=== PATIENT | female | born 1960 | race Caucasian/White ===

== ENCOUNTER → 2018-02-01 15:21 | Outpatient (CLI) | payer OTHER, SELFPAY ==
--- NOTE | 2018-02-01 | DI.MG.S_ITS ---
BILATERAL DIGITAL SCREENING MAMMOGRAM 3D/2D WITH CAD: 02/01/2018 CLINICAL: Routine screening. Family history of breast cancer. Comparison is made to exams dated: 01/26/2014 mammogram, 01/15/2014 mammogram, and 07/30/2007 mammogram - [facility]. There are scattered fibroglandular elements in both breasts. Current study was also evaluated with a Computer Aided Detection (CAD) system. No significant masses, calcifications, or other findings are seen in either breast. There has been no significant interval change. IMPRESSION: NEGATIVE There is no mammographic evidence of malignancy. A 1 year screening mammogram is recommended. This exam was interpreted at Station ID: [id number]. NOTE: For mammograms, a report in lay terms will be sent to the patient. Approximately 15% of breast malignancies will not be visualized mammographically. In the management of a palpable breast mass, a negative mammogram must not discourage biopsy of a clinically suspicious lesion. Electronically Signed By: Lili ge/gael:02/01/2018 16:54:43 letter sent: Normal Exam ACR BI-RADS Category 1: Negative 3341F
== END ==
PROVIDERS: Family Provider Family Medicine; PCP Family Medicine; Visit Provider Family Medicine
DX: Z12.31 Encounter for screening mammogram for malignant neoplasm of breast (principal); Z80.3 Family history of malignant neoplasm of breast
CPT/HCPCS: 77063; 77067

== ENCOUNTER → 2018-03-11 07:57 | Outpatient (CLI) | payer OTHER, SELFPAY ==
[2018-03-11 08:35] LABS: Add Manual Diff / Slide Review NO; Basophils Percent Auto 0.7 % (0-2); Eosinophils Percent Auto 2.9 % (2-4); Hematocrit 42.1 % (36-46); Lymphocytes Percent Auto 34.3 % (25-40); Mean Corpuscular HGB Conc 33.4 % (30-36); Mean Corpuscular Hemoglobin 31.6 PG (26-34); Mean Corpuscular Volume 94.6 fL (80-100); Monocytes Percent Auto 6.8 % (3-14); Neutrophils Absolute Auto 4800 /uL (3000-5900); Neutrophils Percent Auto 55.3 % (50-75); Platelet Count 281 X10^3/uL (150-400); Red Blood Cell Count 4.44 X10^6/uL (4.0-5.2); Red Cell Distribution Width 12.5 % (11.6-14.8); White Blood Cell Count 8.7 X10^3/uL (4.5-11.0)
[2018-03-11 08:44] LABS: Alanine Aminotransferase 28 IU/L (9-52); Albumin 3.8 g/dL (3.5-5.0); Albumin Globulin Ratio 1.3 (1.0-2.8); Alkaline Phosphatase 89 U/L (38-126); Aspartate Aminotransferase 34 IU/L (14-36); BUN Creatinine Ratio 12.5 (6-22); Bilirubin Total 0.4 mg/dL (0.2-1.3); Blood Urea Nitrogen 10 mg/dL (7-17); Calcium 8.5 mg/dL (8.4-10.2); Carbon Dioxide 27 mmol/L (22-32); Chloride 106 mmol/L (98-107); Cholesterol 242 mg/dL (140-199); Estimated Glomerular Filt Rate > 60.0 mL/min (>60); Glucose 92 mg/dL (70-100); HDL Cholesterol 74 mg/dL (40-60); HEMOLYSIS < 15 (0-50); LDL Cholesterol Calculated 132 mg/dL (<100); Potassium 3.9 mmol/L (3.4-5.1); Sodium 142 mmol/L (137-145); Total Protein 6.8 g/dL (6.3-8.2); Triglycerides 181 mg/dL (35-150)
== END ==
PROVIDERS: PCP Family Medicine; Visit Provider Family Medicine
DX: Z00.00 Encounter for general adult medical examination without abnormal findings (principal)
CPT/HCPCS: 36415; 80053; 80061; 85025

== ENCOUNTER → 2018-12-14 13:22 | Outpatient (CLI) | payer OTHER, SELFPAY ==
--- NOTE | 2018-12-14 | DI.RAD.S_ITS ---
PROCEDURE: XR SHOULDER LT MIN 2V INDICATIONS: left shoulder pain TECHNIQUE: 3 views of the shoulder were acquired. COMPARISON: [facility], , SHOULDER MINIMUM 2 VIEW LEFT, 04/06/2017, 11:25. FINDINGS: Bones: No fractures or dislocations. No suspicious bony lesions. Visualized ribs appear intact. There are mild degenerative changes of the left acromioclavicular joint. Soft tissues: No suspicious soft tissue calcifications. IMPRESSION: Mild degenerative changes of the left acromioclavicular joint. Dictated by: Deonte Becerril M.D. on 12/14/2018 at 15:15 Approved by: Deonte Becerril M.D. on 12/14/2018 at 15:20
== END ==
PROVIDERS: PCP Family Medicine; Visit Provider Family Medicine
DX: M25.512 Pain in left shoulder (principal); M17.12 Unilateral primary osteoarthritis, left knee
CPT/HCPCS: 73030

== ENCOUNTER → 2019-01-04 08:16 | Outpatient (CLI) | payer OTHER, SELFPAY ==
--- NOTE | 2019-01-04 | DI.MRI.S_ITS ---
PROCEDURE: MR SHOULDER LT WO CON INDICATIONS: Disorder of synovium and tendon LEFT SHOULDER TECHNIQUE: Noncontrast oblique coronal T2 fast spin echo with fat saturation, oblique sagittal T1 spin echo and T2 fast spin echo with fat saturation, axial T1 spin echo and T2 fast spin echo with fat saturation through the shoulder. COMPARISON: [facility], CR, XR SHOULDER LT MIN 2V, 12/14/2018, 13:32. FINDINGS: Image quality: Excellent. Rotator cuff: Low-grade articular surface fraying of the infraspinatus tendon however no discrete tear is identified. The supraspinatus, teres minor and subscapularis tendons appear intact. No atrophy of the rotator cuff musculature. Bones and bursae: No bone marrow contusions or fractures. Prominent acromioclavicular joint marrow and periarticular soft tissue edema. Possible trace AC joint effusion. The acromion demonstrates conventional anatomy, without an os acromiale. No pathologic subacromial-subdeltoid or subcoracoid bursal fluid is present. Capsule and soft tissues: In the absence of intra-articular contrast, the labrum and glenohumeral ligaments appear intact. Incidental sub-labral foramen. The long head of the biceps tendon demonstrates normal location and morphology. The rotator interval appears normal, without fibrosis. The coracohumeral ligament is normal in thickness. IMPRESSION: Low-grade articular surface fraying of the infraspinatus tendon however no discrete rotator cuff tear. Prominent acromioclavicular joint marrow and periarticular soft tissue edema. This could reflect osteoarthritis although other posttraumatic, infectious or inflammatory arthropathies in the differential. Please correlate clinically. Dictated by: Juan Cooper M.D. on 01/04/2019 at 9:08 Approved by: Juan Cooper M.D. on 01/04/2019 at 9:15
== END ==
PROVIDERS: PCP Family Medicine; Visit Provider Orthopaedic Surgery
DX: M67.912 Unspecified disorder of synovium and tendon, left shoulder (principal); M25.412 Effusion, left shoulder
CPT/HCPCS: 73221

== ENCOUNTER → 2019-03-02 09:40 | Outpatient (CLI) | payer OTHER, SELFPAY ==
--- NOTE | 2019-03-02 | DI.MG.S_ITS ---
BILATERAL DIGITAL SCREENING MAMMOGRAM 3D/2D WITH CAD: 03/02/2019 CLINICAL: Routine screening. Family history of breast cancer. Comparison is made to exams dated: 02/01/2018 mammogram, 01/15/2014 mammogram, and 07/30/2007 mammogram - [facility]. There are scattered fibroglandular elements in both breasts. Current study was also evaluated with a Computer Aided Detection (CAD) system. No significant masses, calcifications, or other findings are seen in either breast. There has been no significant interval change. IMPRESSION: NEGATIVE There is no mammographic evidence of malignancy. A 1 year screening mammogram is recommended. This exam was interpreted at Station ID: [id number]. NOTE: For mammograms, a report in lay terms will be sent to the patient. Approximately 15% of breast malignancies will not be visualized mammographically. In the management of a palpable breast mass, a negative mammogram must not discourage biopsy of a clinically suspicious lesion. Electronically Signed By: Lili ge/gael:03/02/2019 10:40:39 letter sent: Normal Exam ACR BI-RADS Category 1: Negative 3341F
== END ==
PROVIDERS: PCP Family Medicine; Visit Provider Family Medicine
DX: Z12.31 Encounter for screening mammogram for malignant neoplasm of breast (principal); Z80.3 Family history of malignant neoplasm of breast
CPT/HCPCS: 77063; 77067

== ENCOUNTER 2019-04-07 09:41 | Day surgery (SDC) | payer OTHER, SELFPAY ==
[2019-04-07] VITALS (8 sets, daily range): BP systolic 92–107; BP diastolic 62–72; PULSE 54–81; RESP 10–16; TEMP 36.2–36.6; O2SAT 94–99; BMI 26.6
--- NOTE | 2019-04-07 | PATH_ITS ---
[facility] Accession Number: [id number] . 01 Material submitted: . rectum - POLYP RECTUM NEAR ANUS . 02 Diagnosis: Rectum, Near Anus, Polyp: Hyperplastic polyp. [facility]/04/10/2019 . 02 Electronically signed: . Terrance Ramirez MD, PhD, Pathologist NPI- [id number] . 01 Gross description: . POLYP RECTUM NEAR ANUS: Received in formalin is 1 fragment(s) of rudolph, soft tissue measuring 0.2 x 0.2 x 0.2 cm which is entirely submitted and submitted entirely in 1 cassette(s) /DMC /DMC . 02 Pathologist provided ICD-10: K62.1 . 02 CPT . 895044 Performed at: 01 [facility] Located within [facility] [address] [id number] MD Lv Whitney MD Phone: [phone] Performed at: 02 [facility] [place] [address] [place], [place] [id number] MD Nanci Hill MD Phone: [phone]
[2019-04-07] MEDS: SODIUM CHLORIDE 0.9% 1,000 ML 200 ML IV (10:13)
--- NOTE | 2019-04-07 11:25 | P.HP_ITS ---
History of Present Illness Date Patient Seen: 04/07/19 Time Patient Seen: 11:24 Chief complaint: 59530 SCREENING COLONOSCOPY Narrative: The patient is here for screening colonoscopy. Last exam was 5 years ago. She had a polyp removed at that time. Patient History Medical History Arthritis (Acute) Bursitis of left shoulder (Acute) Impaired vision (Acute) Dermoid cyst (Chronic) Fibroids (Chronic) Vaginal delivery (Resolved) Surgical History H/O total hysterectomy with bilateral salpingo-oophorectomy (BSO) (Resolved ~01/10/15) History of bilateral tubal ligation (Resolved ~1989) History of sinus surgery (Resolved 1986) Status post tonsillectomy and adenoidectomy (Resolved) Family History Father Diabetes mellitus Mother Aneurysm Epilepsy Social History household members: spouse Smoking Status: Former smoker Family & Social History Family History Father Diabetes mellitus Mother Aneurysm Epilepsy Social History: household members spouse Tobacco & Substance use: Smoking Status Former smoker Meds Home Medications Medication Instructions Recorded Confirmed Type loratadine [Claritin] 10 mg PO QDAY #0 07/11/12 03/22/18 History estradiol 1 mg tablet 1 mg PO QDAY #90 tab 03/22/18 Rx Allergies Allergy/AdvReac Type Severity Reaction Status Date / Time prochlorperazine Allergy Severe JAW Unverified 12/22/17 13:03 PAIN/SWELLING dog dander Allergy Intermediate Verified 03/22/18 09:03 amoxicillin Allergy Mild HIVES Unverified 12/22/17 13:03 Sulfa (Sulfonamide Allergy Mild STOMACH Unverified 12/22/17 13:03 Antibiotics) UPSET/HEADACHES Review of Systems Review of Systems All systems reviewed & are unremarkable except as noted in HPI and below Musculoskeletal Comments: Shoulder arthritis Exam Vital Signs (past 8 hours): - 04/07/19 10:13 Temperature 97.5 F L Pulse Rate 81 Respiratory Rate 15 Blood Pressure 107/72 Pulse Oximetry 94 Oxygen Delivery Method Room Air Narrative Exam Narrative: Pleasant cooperative patient no apparent distress. Lungs are clear to auscultation. No rales or rhonchi. Heart regular rate and rhythm no murmur gallop. Abdomen is soft nontender without mass. No obvious hernias. Patient is alert and oriented x3. Assessment & Plan Assessment & Plan narrative: The patient for a screening colonoscopy. I have discussed the procedure with them. Risks of bleeding, perforation which would n ecessitate major operation, failure to find remove all lesions, the potential tattoo were all discussed. All questions were answered. They wished to proceed.
--- NOTE | 2019-04-07 11:25 | PM.PREOP ---
Pre-operative Note Interval Note History & Physical reviewed/Exam performed by Physician: Yes Changes to H&P: No ASA Class (for procedural sedation): I
[2019-04-07] MEDS: SCOPOLAMINE 1 PATCH TOP (11:30)
[2019-04-07] MEDS: ONDANSETRON 4 MG/2 ML INJ IV (11:37)
[2019-04-07] MEDS: MIDAZOLAM 5 MG/5 ML VIAL IV (11:45)
[2019-04-07] MEDS: fentaNYL 250 MCG/5 ML INJ IV (11:45)
--- NOTE | 2019-04-07 12:02 | P.OP.ENDO_ITS ---
Operative Date/Time/Diagnoses Date of procedure: 04/07/19 Time of procedure: 11:58 Pre-op diagnosis: Screening exam. Last exam 5 years ago. History of polyps Post-op diagnosis: same (The single Ano- rectal polyp) Procedure & Clinicians Study performed: Colonoscopy with cold biopsy Same procedure as scheduled: Yes Indications: Screening Surgeon: Ryan Sotomayor Procedure Notes SCOAP/Timeout: Performed Procedure in detail: The patient was placed in the left lateral decubitus position and underwent IV sedation directed by the surgeon consisting of fentanyl and Versed. Digital exam was unremarkable. The scope was inserted and advanced through the rectum into the sigmoid, descending, transverse, and ascending colon. No significant lesions were seen.. The cecum was reached identified by the ileocecal valve and the appendiceal opening. The ileocecal valve was successfully cannulated. The terminal ileum was normal in appearance. The scope was gradually brought out. One Polyp was found at just inside the an us. The scope ultimately was retroflexed in the rectum. The appearance was normal except for the tiny polyp I saw. This was removed with cold biopsy forceps. The scope was removed and the patient tolerated the procedure well. Prep was very good. Scope withdrawal time: 7-1/2 minutes Sedation minutes: 20 Findings: polyp (Just inside the anus) Specimen(s): other (Polyp) Complications: none Recommendations: Colonscopy in 5 years (Due to history of polyps)
--- NOTE | 2019-04-07 12:33 | SUR.PHASEI ---
1200 To PACU, Very sleeping, arouses to voice, skin warm and dry, resp unlabored 1230 Turned to back, responds to voice, VSS. Very sleepy. Stable.
== END 2019-04-07 13:17 | disposition home or self-care (01) ==
LOC: ENDO 09:43
PROVIDERS: PCP Student in an Organized Health Care Education/Training Program; Visit Provider Specialist
PROC: 0DJD8ZZ Inspection of Lower Intestinal Tract, Via Natural or Artificial Opening Endoscopic (ICD-10-PCS; CPT 45378; principal; 2019-04-07 10:45)
DX: Z86.010 Personal history of colon polyps (principal); K62.1 Rectal polyp
CPT/HCPCS: 45380; 99152; J2250; J2405; J3010

== ENCOUNTER → 2019-10-20 09:23 | Outpatient (CLI) | payer OTHER, SELFPAY ==
--- NOTE | 2019-10-20 | DI.RAD.S_ITS ---
PROCEDURE: XR KNEE RT 3V INDICATIONS: RIGHT KNEE PAIN TECHNIQUE: 3 views of the knee were acquired. COMPARISON: None. FINDINGS: Bones: No fractures or dislocations. No suspicious bony lesions. Scattered degenerative subchondral sclerosis and spurring. No definite joint space narrowing Soft tissues: No joint effusion. No suspicious soft tissue calcifications. IMPRESSION: Mild degenerative changes as above Dictated by: Juan Cooper M.D. on 10/20/2019 at 11:08 Approved by: Juan Cooper M.D. on 10/20/2019 at 11:09
--- NOTE | 2019-10-20 | DI.RAD.S_ITS ---
PROCEDURE: XR FOOT RT MIN 3V INDICATIONS: RIGHT FOOT PAIN TECHNIQUE: 3 views of the foot were acquired. COMPARISON: None. FINDINGS: Bones: No fractures or dislocations. No suspicious bony lesions. Posterior and plantar calcaneal spur. First MTP degeneration, with prominent dorsal spur seen on the lateral view. Slight flattening deformity of the second metatarsal head raising possibility of Freiberg's infraction. Diffuse interphalangeal degenerative changes. Focal lucency projecting in the fifth metatarsal head which could represent cyst or erosion, technically age-indeterminate. Soft tissues: No tibiotalar joint effusion. Achilles tendon appears normal. IMPRESSION: Diffuse right foot joint degenerative changes as above Dictated by: Juan Cooper M.D. on 10/20/2019 at 11:01 Approved by: Juan Cooper M.D. on 10/20/2019 at 11:08
== END ==
PROVIDERS: PCP Student in an Organized Health Care Education/Training Program; Referring Provider Student in an Organized Health Care Education/Training Program; Visit Provider Student in an Organized Health Care Education/Training Program
DX: M25.561 Pain in right knee (principal); M79.671 Pain in right foot
CPT/HCPCS: 73562; 73630

== ENCOUNTER → 2020-03-13 12:43 | Outpatient (CLI) | payer OTHER, SELFPAY ==
--- NOTE | 2020-03-13 | DI.MG.S_ITS ---
BILATERAL DIGITAL SCREENING MAMMOGRAM 3D/2D WITH CAD: 03/13/2020 CLINICAL: Routine screening. Family history of breast cancer. Comparison is made to exams dated: 03/02/2019 mammogram, 02/01/2018 mammogram, and 01/26/2014 mammogram - [facility]. There are scattered fibroglandular elements in both breasts. Current study was also evaluated with a Computer Aided Detection (CAD) system. No significant masses, calcifications, or other findings are seen in either breast. There has been no significant interval change. IMPRESSION: NEGATIVE There is no mammographic evidence of malignancy. A 1 year screening mammogram is recommended. This exam was interpreted at Station ID: [id number]. NOTE: For mammograms, a report in lay terms will be sent to the patient. Approximately 15% of breast malignancies will not be visualized mammographically. In the management of a palpable breast mass, a negative mammogram must not discourage biopsy of a clinically suspicious lesion. Electronically Signed By: Omega guido/gael:03/13/2020 13:44:46 letter sent: Normal Exam ACR BI-RADS Category 1: Negative 3341F
== END ==
PROVIDERS: PCP Student in an Organized Health Care Education/Training Program; Referring Provider Student in an Organized Health Care Education/Training Program; Visit Provider Student in an Organized Health Care Education/Training Program
DX: Z12.31 Encounter for screening mammogram for malignant neoplasm of breast (principal); Z80.3 Family history of malignant neoplasm of breast
CPT/HCPCS: 77063; 77067

== ENCOUNTER → 2021-03-14 10:37 | Outpatient (CLI) | payer OTHER, SELFPAY ==
--- NOTE | 2021-03-14 | DI.MG.S_ITS ---
BILATERAL DIGITAL SCREENING MAMMOGRAM 3D/2D WITH CAD: 03/14/2021 CLINICAL: Routine screening. Family history of breast cancer. Comparison is made to exams dated: 03/13/2020 mammogram, 03/02/2019 mammogram, and 02/01/2018 mammogram - [facility]. There are scattered fibroglandular elements in both breasts. Current study was also evaluated with a Computer Aided Detection (CAD) system. No significant masses, calcifications, or other findings are seen in either breast. There has been no significant interval change. IMPRESSION: NEGATIVE There is no mammographic evidence of malignancy. A 1 year screening mammogram is recommended. This exam was interpreted at Station ID: [id number]. NOTE: For mammograms, a report in lay terms will be sent to the patient. Approximately 15% of breast malignancies will not be visualized mammographically. In the management of a palpable breast mass, a negative mammogram must not discourage biopsy of a clinically suspicious lesion. Electronically Signed By: Lv hernandez/gael:03/14/2021 11:47:13 letter sent: Normal Exam ACR BI-RADS Category 1: Negative 3341F
== END ==
PROVIDERS: PCP Student in an Organized Health Care Education/Training Program; Referring Provider Student in an Organized Health Care Education/Training Program; Visit Provider Student in an Organized Health Care Education/Training Program
DX: Z12.31 Encounter for screening mammogram for malignant neoplasm of breast (principal); Z80.3 Family history of malignant neoplasm of breast
CPT/HCPCS: 77063; 77067

== ENCOUNTER 2021-04-20 15:10 | Emergency (ER) | payer OTHER, SELFPAY ==
[2021-04-20 15:13] VITALS: BP 126/58; PULSE 79; RESP 16; TEMP 36.7; O2SAT 97
--- NOTE | 2021-04-20 15:15 | DI.RAD.S_ITS ---
PROCEDURE: XR ANKLE RT MIN 3V INDICATIONS: rolled rt ankle lateral pain, ambulatory TECHNIQUE: 3 views of the ankle were acquired. COMPARISON: [facility], CR, XR FOOT RT MIN 3V, 10/20/2019, 9:28. FINDINGS: Bones: No fractures or dislocations. Ankle mortise is normally aligned. No suspicious bony lesions. The talar dome demonstrates no jerrod abnormality. Incidental note is made of an accessory ossicle, an os trigonum. Age-appropriate bony degenerative changes are seen. A plantar calcaneal spur is seen. Soft tissues: No tibiotalar joint effusion. Achilles tendon appears normal. IMPRESSION: Degenerative changes, without an acute bony abnormality identified. If it would be helpful for clinical management decision making, please consider a dedicated, scheduled ankle MRI for further evaluation (assuming that there is no contraindication). Dictated by: Willi Duffy M.D. on 04/20/2021 at 14:32 Approved by: Willi Duffy M.D. on 04/20/2021 at 14:32
[2021-04-20 17:00] VITALS: BP 102/61; PULSE 73; RESP 18; O2SAT 99
--- NOTE | 2021-04-20 19:03 | ED_ITS ---
HPI - Extremity Injury (Lower) General Chief Complaint: Extremity Injury, Lower Stated Complaint: ROLLED RIGHT ANKLE Time Seen by Provider: 04/20/21 19:03 Source: patient Mode of arrival: Ambulatory Limitations: no limitations History of Present Illness HPI Narrative: This is a 61-year-old female [place] she rolled her right ankle inverting it. Patient developed swelling and some pain over the lateral malleoli. Patient has not any numbness or tingling or weakness. She has pain with weight-bearing. She has pain if she tries to gerson her ankle or inverted. She denies any injury elsewhere. She did have a severe ankle sprain at the age of 20 but has not had any other injuries. She did not take anything at home but did ice it for about an hour I which was somewhat helpful. Patient denies any other major medical issues. No prior surgeries to that ankle. She denies any other injuries today. She states that she does have crutches at home. Related Data Home Medications Medication Instructions Recorded Confirmed loratadine 10 mg tablet (Claritin) 10 mg PO QDAY #0 07/11/12 03/22/18 Previous Rx's Medication Instructions Recorded estradiol 1 mg tablet 1 mg PO QDAY #90 tab 03/22/18 Allergies Allergy/AdvReac Type Severity Reaction Status Date / Time prochlorperazine Allergy Severe JAW Unverified 12/22/17 13:03 PAIN/SWELLING dog dander Allergy Intermediate Verified 03/22/18 09:03 amoxicillin Allergy Mild HIVES Unverified 12/22/17 13:03 Sulfa (Sulfonamide Allergy Mild STOMACH Unverified 12/22/17 13:03 Antibiotics) UPSET/HEADACHES Review of Systems Review of Systems ROS Unobtainable: All systems reviewed & are unremarkable except as noted in HPI and below Patient History Medical History Arthritis Bursitis of left shoulder Dermoid cyst Fibroids Impaired vision Vaginal delivery Surgical History H/O total hysterectomy with bilateral salpingo-oophorectomy (BSO) (~01/10/15) History of bilateral tubal ligation (~1989) History of sinus surgery (1986) Status post tonsillectomy and adenoidectomy Family History Father Diabetes mellitus Mother Aneurysm Epilepsy Social History household members: spouse Smoking Status: Former smoker Smoking Status: Former smoker Exam Narrative Exam Narrative: GENERAL: Alert and oriented x three, female mild distress. HEENT: Head normocephalic, atraumatic, EOMI, pupils reactive, face symmetric, moist mucous membranes NECK: Supple, full range of motion CARDIOVASCULAR: Regular rate and rhythm without murmurs, rubs or gallops. RESPIRATORY: Breath sounds equal bilaterally, no wheezes rales or rhonchi. EXTREMITIES: Normal range of motion, no clubbing patient has tenderness and swelling as well ecchymosis over the lateral malleoli and just underneath. Shraddha ent's negative joint laxity testing. She has not any other bony tenderness of her light lower extremity. She has normal sensation with 2+ dorsalis pedis pulse. Neurovascularly intact NEUROLOGICAL: Cranial nerves II through XII grossly intact. Moving all extremities SKIN: Warm, dry, no petechiae, no rashes or lesions. Initial Vital Signs Initial Vital Signs: Vital Signs Temperature 98.1 F 04/20/21 15:13 Pulse Rate 79 04/20/21 15:13 Respiratory Rate 16 04/20/21 15:13 Blood Pressure 126/58 L 04/20/21 15:13 Pulse Oximetry 97 04/20/21 15:13 Course Orders Ordered: Discontinued Medications Ibuprofen (Ibuprofen 400 Mg Tablet) 800 mg PO NOW ONE Stop: 04/20/21 19:13 Last Admin: 04/20/21 19:25 Dose: 800 mg Documented by: AUPDIKE Vital Signs Vital signs: Vital Signs - 8 hr 04/20/21 15:13 04/20/21 17:00 Temperature 98.1 F Pulse Rate 79 73 Respiratory Rate 16 18 Blood Pressure 126/58 L 102/61 Pulse Oximetry 97 99 MDM - Extremity Injury (Lower) Imaging Data Extremity x-ray #1: Radiologist's Impression: [address] [id number] ReportSigned Patient: Toya Perez MMR#: [id number]: [id number]:[id number]/Sex: 61 / FDate of Service: 04/20/21Loc: EDAccession Number: [id number] Procedure: XR ankle RT min 3V Ordering Provider: Adela Pereira D.O. PROCEDURE: XR ANKLE RT MIN 3V INDICATIONS: rolled rt ankle lateral pain, ambulatory TECHNIQUE: 3 views of the ankle were acquired. COMPARISON: [facility], CR, XR FOOT RT MIN 3V, 10/20/2019, 9:28. FINDINGS: Bones: No fractures or dislocations. Ankle mortise is normally aligned. No suspicious bony lesions. The talar dome demonstrates no jerrod abnormality. Incidental note is made of an accessory ossicle, an os trigonum. Age-appropriate bony degenerative changes are seen. A plantar calcaneal spur is seen. Soft tissues: No tibiotalar joint effusion. Achilles tendon appears normal. IMPRESSION: Degenerative changes, without an acute bony abnormality identified. If it would be helpful for clinical management decision making, please consider a dedicated, scheduled ankle MRI for further evaluation (assuming that there is no contraindication). Dictated by: Willi Duffy M.D. on 04/20/2021 at 14:32 Approved by: Willi Duffy M.D. on 04/20/2021 at 14:32 Discharge Plan Departure Patient Disposition: Home Clinical Impression: Right ankle sprain Instructions: DI for Ankle Sprain Activity Restrictions/Additional Instructions: Follow-up with your physician if you are not having improvement the next 7-10 days. Call for an appointment. If you are not having improvement you may need repeat x-rays to evaluate for any occult fracture that sometimes is noted when bone regrowth weekends. You may take ibuprofen up to 800 mg every 8 hours and/or Tylenol up to a 1000 mg every 8 hours as needed for pain. You may weight bear as tolerated. Elevated affected body part to decrease swelling. OK to use ice pack on the affected body part. Use for 15-20 minutes each time, for 5-6x per day. If you develop worsening pain, numbness, tingling, discoloration of the affected body part, loosen or readjust the splint and either see your doctor for an urgent re-assessment, or return to the Emergency Department. Return to the Emergency Department for any new or worsening symptoms. Prescriptions: No Action loratadine [Claritin] 10 MG tablet 10 mg PO QDAY Qty: 0 RF: 0 estradiol 1 mg tablet 1 mg PO QDAY Qty: 90 RF: 3 Referrals: Denisse Bhakta MD [Primary Care Provider] -
[2021-04-20] MEDS: IBUPROFEN 400 MG TABLET 800 MG PO (19:25)
[2021-04-20 19:34] VITALS: PULSE 79; RESP 16; O2SAT 98
== END 2021-04-20 19:35 | disposition home or self-care (01) ==
PROVIDERS: Emergency Provider Emergency Medicine; PCP Student in an Organized Health Care Education/Training Program
DX: S93.401A Sprain of unspecified ligament of right ankle, initial encounter (principal); X50.1XXA Overexertion from prolonged static or awkward postures, initial encounter
CPT/HCPCS: 73610; 99283

== ENCOUNTER → 2022-03-17 11:39 | Outpatient (CLI) | payer OTHER, SELFPAY ==
--- NOTE | 2022-03-17 | DI.MG.S_ITS ---
BILATERAL DIGITAL SCREENING MAMMOGRAM 3D/2D WITH CAD: 03/17/2022 CLINICAL: Routine screening. Family history of breast cancer. Comparison is made to exams dated: 03/14/2021 mammogram, 03/13/2020 mammogram, 03/02/2019 mammogram, 02/01/2018 mammogram, and 01/15/2014 mammogram - [facility]. There are scattered fibroglandular elements in both breasts. Current study was also evaluated with a Computer Aided Detection (CAD) system. No significant masses, calcifications, or other findings are seen in either breast. There has been no significant interval change. IMPRESSION: NEGATIVE There is no mammographic evidence of malignancy. A 1 year screening mammogram is recommended. Based on the Tyrer Cuzick model (a risk assessment model) the patient's lifetime risk is 12.3% and her 10 year risk is 4.8%. According to the ACR, ACS, and NCCN guidelines, an annual breast MRI exam along with mammogram is recommended if the patient's lifetime risk is 20% or greater. This exam was interpreted at Station ID: [id number]. NOTE: For mammograms, a report in lay terms will be sent to the patient. Approximately 15% of breast malignancies will not be visualized mammographically. In the management of a palpable breast mass, a negative mammogram must not discourage biopsy of a clinically suspicious lesion. Electronically Signed By: Jonathan arriaga/gael:03/17/2022 12:59:19 letter sent: Normal Exam ACR BI-RADS Category 1: Negative 3341F
== END ==
PROVIDERS: PCP Family Medicine; Referring Provider Family Medicine; Visit Provider Family Medicine
DX: Z12.31 Encounter for screening mammogram for malignant neoplasm of breast (principal); Z80.3 Family history of malignant neoplasm of breast
CPT/HCPCS: 77063; 77067

== ENCOUNTER → 2022-09-03 13:56 | Outpatient (CLI) | payer OTHER, SELFPAY ==
--- NOTE | 2022-09-03 14:02 | DI.RAD.S_ITS ---
PROCEDURE: XR TOE LT MIN 2V INDICATIONS: ROUTINE TECHNIQUE: 3 views of the 5th toe(s) acquired. COMPARISON: None. FINDINGS: Bones: Minimally displaced intra-articular fracture involving the base of the 5th proximal phalanx. Soft tissues: No suspicious soft tissue densities. IMPRESSION: Intra-articular fracture involving the base of the 5th proximal phalanx. Dictated by: Tal LIRIANO Interpreted: Jonathan Swanson MD on 09/03/2022 at 14:35 Transcribed by: SARAH on 09/03/2022 at 14:36 Approved by: Jonathan Swanson M.D. on 09/03/2022 at 14:42
== END ==
PROVIDERS: PCP Family Medicine; Referring Provider Family Medicine; Visit Provider Family Medicine
DX: S92.512A Displaced fracture of proximal phalanx of left lesser toe(s), initial encounter for closed fracture (principal); M79.675 Pain in left toe(s)
CPT/HCPCS: 73660

== ENCOUNTER → 2023-03-18 15:30 | Outpatient (CLI) | payer OTHER, SELFPAY ==
--- NOTE | 2023-03-18 | DI.MG.S_ITS ---
BILATERAL DIGITAL SCREENING MAMMOGRAM 3D/2D WITH CAD: 03/18/2023 CLINICAL: Routine screening. Family history of breast cancer. Comparison is made to exams dated: 03/17/2022 mammogram, 03/13/2020 mammogram, and 03/14/2021 mammogram - [facility]. There are scattered areas of fibroglandular density in both breasts (category b / 25%-50% glandular tissue). Current study was also evaluated with a Computer Aided Detection (CAD) system. No significant masses, calcifications, or other findings are seen in either breast. There has been no significant interval change. IMPRESSION: NEGATIVE There is no mammographic evidence of malignancy. A 1 year screening mammogram is recommended. Based on the Tyrer Cuzick model (a risk assessment model) the patient's lifetime risk is 12.0% and her 10 year risk is 4.9%. According to the ACR, ACS, and NCCN guidelines, an annual breast MRI exam along with mammogram is recommended if the patient's lifetime risk is 20% or greater. This exam was interpreted at Station ID: [id number]. NOTE: For mammograms, a report in lay terms will be sent to the patient. Approximately 15% of breast malignancies will not be visualized mammographically. In the management of a palpable breast mass, a negative mammogram must not discourage biopsy of a clinically suspicious lesion. Electronically Signed By: Omega [email or web address]/[email or web address]:03/19/2023 08:10:09 letter sent: Normal Exam ACR BI-RADS Category 1: Negative 3341F
== END ==
PROVIDERS: PCP Family Medicine; Referring Provider Family Medicine; Visit Provider Family Medicine
DX: Z12.31 Encounter for screening mammogram for malignant neoplasm of breast (principal); Z80.3 Family history of malignant neoplasm of breast
CPT/HCPCS: 77063; 77067

== ENCOUNTER → 2024-04-03 10:06 | Outpatient (CLI) | payer OTHER, SELFPAY ==
--- NOTE | 2024-04-03 10:07 | DI.MG.S_ITS ---
BILATERAL DIGITAL SCREENING MAMMOGRAM 3D/2D WITH CAD: 04/03/2024 CLINICAL: Routine screening. Family history of breast cancer. Comparison is made to exams dated: 03/18/2023 mammogram, 03/17/2022 mammogram, and 03/14/2021 mammogram - [facility]. There are scattered areas of fibroglandular density in both breasts (category b / 25%-50% glandular tissue). Current study was also evaluated with a Computer Aided Detection (CAD) system. No significant masses, calcifications, or other findings are seen in either breast. There has been no significant interval change. IMPRESSION: NEGATIVE There is no mammographic evidence of malignancy. A 1 year screening mammogram is recommended. Based on the Tyrer Cuzick model (a risk assessment model) the patient's lifetime risk is 11.8% and her 10 year risk is 5.0%. According to the ACR, ACS, and NCCN guidelines, an annual breast MRI exam along with mammogram is recommended if the patient's lifetime risk is 20% or greater. This exam was interpreted at Station ID: [id number]. NOTE: For mammograms, a report in lay terms will be sent to the patient. Approximately 15% of breast malignancies will not be visualized mammographically. In the management of a palpable breast mass, a negative mammogram must not discourage biopsy of a clinically suspicious lesion. Electronically Signed By: Wendy Baig M.D., Ph.D. [email or web address]/[email or web address]:04/03/2024 15:40:04 letter sent: Normal Exam ACR BI-RADS Category 1: Negative 3341F
== END ==
PROVIDERS: PCP Family Medicine; Referring Provider Family Medicine; Visit Provider Family Medicine
DX: Z12.31 Encounter for screening mammogram for malignant neoplasm of breast (principal); Z80.3 Family history of malignant neoplasm of breast; R92.323 Mammographic fibroglandular density, bilateral breasts
CPT/HCPCS: 77063; 77067

== ENCOUNTER 2024-04-18 07:24 | Day surgery (SDC) | payer OTHER, SELFPAY ==
[2024-04-18] MEDS: FLEETS ENEMA 1 EACH PR (07:41)
[2024-04-18] MEDS: LACTATED RINGERS 1,000 ML 42 ML IV (07:41)
[2024-04-18 07:46] VITALS: BP 93/68; PULSE 92; RESP 18; TEMP 36.3; O2SAT 95
[2024-04-18] MEDS: LIDOCAINE 1% 20 ML INJ (08:08)
--- NOTE | 2024-04-18 08:09 | PM.HP.1 ---
History of Present Illness History of Present Illness Date Patient Seen: 04/18/24 Time Patient Seen: 08:10 Chief complaint: Screening Colonoscopy Narrative: 64-year-old woman personal history of colonic polyps here for screening colonoscopy. Last colonoscopy 2018. Grandparents have a history of colon cancer no first-degree relatives. No abdominal concerns today [facility] Medical History Impaired vision Arthritis Bursitis of left shoulder Dermoid cyst Fibroids Vaginal delivery Surgical History H/O total hysterectomy with bilateral salpingo-oophorectomy (BSO) (~01/10/15) History of sinus surgery (1986) History of bilateral tubal ligation (~1989) Status post tonsillectomy and adenoidectomy Family History Father Diabetes mellitus Mother Aneurysm Epilepsy Social History household members: spouse Smoking Status: Former smoker alcohol intake: current Meds Home Medications and Allergies Home Medications Medication Instructions Recorded Confirmed Type loratadine 10 mg tablet (Claritin) 10 mg PO QDAY ##0 07/11/12 04/18/24 History sodium sul 1.479 gram-potas ch See Rx Instructions PO PER PKG DIR 03/20/24 04/18/24 Rx 0.188 gram-magnes sul 0.225 gram #24 tabs tablet (Sutab) Allergies Allergy/AdvReac Type Severity Reaction Status Date / Time prochlorperazine Allergy Severe JAW Verified 04/18/24 07:52 PAIN/SWELLING dog dander Allergy Intermediate Verified 04/18/24 07:52 amoxicillin Allergy Mild HIVES Verified 04/18/24 07:52 Sulfa (Sulfonamide Allergy Mild STOMACH Verified 04/18/24 07:52 Antibiotics) UPSET/HEADACHES Exam Vital Signs (past 8 hours): - 04/18/24 07:46 Temperature 97.3 F L Pulse Rate 92 H Respiratory Rate 18 Blood Pressure 93/68 Pulse Oximetry 95 Oxygen Delivery Method Room Air Oxygen Delivery Method Room Air Narrative Exam Narrative: General adult woman alert oriented no acute distress Chest nonlabored respiration Extremities warm well perfused Assessment & Plan Assessment & Plan narrative: The patient requires colorectal screening and colonoscopy is recommended. Technical details were discussed. Risks, benefits, alternatives explained. Risks including but not limited to myocardial infarction, aspiration, bleeding, pain, missed lesion, incomplete examination, need for further radiographic studies, intestinal injury, and need for major abdominal surgery were discussed. All questions were answered to their satisfaction, and they are in agreement with this plan. Time-Based Coding :: [TOTAL MINUTES] spent with patient and on the chart (including review of chart, obtaining history, exam, reviewing outside data, placing orders, documenting exam and treatment plan, and counseling patient) on [DATE].
[2024-04-18 08:35] VITALS: BP 124/68; PULSE 77; RESP 16; TEMP 36.7; O2SAT 97
[2024-04-18 08:40] VITALS: BP 111/66; PULSE 77; RESP 16; O2SAT 98
--- NOTE | 2024-04-18 08:40 | P.OP.COLON_ITS ---
Operative Date/Time/Diagnoses Date of procedure: 04/18/24 Time of procedure: 08:40 Pre-op diagnosis: History of colonic polyps Procedure & Clinicians Study performed: Screening colonoscopy Same procedure as scheduled: Yes Indications: Colorectal screening History of colonic polyps Surgeon: Shelton Delvalle Procedure Notes Procedure in detail: The history and physical was performed/updated and the patient is ASA class is 2. The procedure was discussed in detail with the patient. Potential risks complications including infection, bleeding, missed diagnosis, perforation, need for surgery, and were explained. Their questions were answered and informed consent was obtained. Patient was brought to the procedure room and placed standard monitoring equipment. The patient's vital signs were monitored continuously throughout the entire procedure. Prior to starting time-out was performed. The patient was placed in the left lateral recumbent position. Procedural sedation was administered by anesthesia. Examination began with a thorough inspection of the perianal area there was no evidence of fissures, fistulae, external hemorrhoids or cutaneous malignancy. The colonoscopy scope was then placed into the anal canal and was advanced to the cecum, which was identified by the ileocecal valve, the appendiceal orifice and the confluence of the taenia. The scope was then slowly withdrawn examining colon thoroughly in all directions, irrigating it of any residual stool. The scope was retroflexed within the rectum The patient tolerated the procedure well. They will be discharged once criteria are met. The prep was of good/excellent quality. The withdrawl time was 7 minutes. FINDINGS * Normal healthy colonic mucosa without mass or polyps. * Internal hemorrhoids Specimen(s): none sent Impression: Normal colonoscopy Post-procedure Recommendations: Colonoscopy in 10 years Disposition: same day surgery
[2024-04-18 08:45] VITALS: BP 115/68; PULSE 70; RESP 11; TEMP 36; O2SAT 100
== END 2024-04-18 09:01 | disposition home or self-care (01) ==
PROVIDERS: PCP Family Medicine; Referring Provider Surgery; Visit Provider Surgery
PROC: 0DJD8ZZ Inspection of Lower Intestinal Tract, Via Natural or Artificial Opening Endoscopic (ICD-10-PCS; CPT 45378; principal; 2024-04-18 08:15)
DX: Z12.11 Encounter for screening for malignant neoplasm of colon (principal); Z86.010 Personal history of colon polyps; K64.8 Other hemorrhoids
CPT/HCPCS: 45378; J2704

== ENCOUNTER → 2025-04-05 09:50 | Outpatient (CLI) | payer OTHER, SELFPAY ==
--- NOTE | 2025-04-05 09:51 | DI.MG.S_ITS ---
MM screening mammo BI: 04/05/2025. BI-RADS: 1 CLINICAL: 64-year old female for bilateral screening mammogram. Tyrer-Cuzick lifetime risk of 7.7%. Current reported family history of breast cancer: mother. PRIOR EXAMS 04/03/2024, 03/18/2023, 03/17/2022, 03/14/2021. MAMMOGRAPHY TECHNIQUE: 2D and 3D (tomosynthesis) digital mammographic views obtained, with additional images as needed for full coverage. Current study was also evaluated with a Computer Aided Detection (CAD) system. DENSITY B. There are scattered areas of fibroglandular density. MAMMOGRAPHY FINDINGS Bilateral: No suspicious mass, asymmetry, microcalcification, or other abnormality seen. IMPRESSION: * No evidence of malignancy. RECOMMENDATIONS Bilateral * Annual screening mammography. OVERALL ASSESSMENT CATEGORY BI-RADS-1: Negative. The [employer] recommends annual screening mammography beginning at age 40 for women with average risk of breast cancer. ELECTRONICALLY SIGNED: Ирина Rosales M.D. on 04/05/2025 at 12:36:34 PM PT Interpreting Station ID: [id number]
== END ==
LOC: MAMMO 09:50
PROVIDERS: PCP Family Medicine; Referring Provider Family Medicine; Visit Provider Family Medicine
DX: Z12.31 Encounter for screening mammogram for malignant neoplasm of breast (principal); Z80.3 Family history of malignant neoplasm of breast
CPT/HCPCS: 77063; 77067

== ENCOUNTER → 2025-08-30 08:50 | Outpatient (CLI) | payer OTHER, SELFPAY | PROVIDERS: Family Provider Family Medicine; PCP Family Medicine; Referring Provider Family Medicine; Visit Provider Family Medicine | DX: R20.0 Anesthesia of skin (principal); R20.2 Paresthesia of skin | CPT/HCPCS: 95885; 95886; 95913 ==